=== PATIENT | female | born 1950 | race Caucasian/White ===

== ENCOUNTER 2016-07-06 20:26 | Emergency (ER) | payer OTHER ==
[~2016-07-06] VITALS: Ht 162.6 cm; Wt 62.0 kg
[~2016-07-06 20:26] MED LIST: ALPR2TAB3 PO; AMIO200T2 PO; ASPI81TA3 PO; BACTDS PO; CARV12.579 PO; CEPH-443 PO; CYCL-319 PO; DOCU-144 PO; DONE5TAB46 PO; GUAN1TAB28 PO; HYDR-762 PO; OXCA150T43 PO; PRAV10TA43 PO; SERT50TA PO; TRAM50TA2 PO; ZOLP5TAB6 PO
[2016-07-06 20:30] VITALS: Ht 162.6 cm; Wt 62.0 kg
[2016-07-06 22:03] VITALS: TEMP 98
[2016-07-06] MEDS ORDERED: HYDROmorphONE 1 MG/ML SYG IV STA (22:03)
[2016-07-06 22:33] LABS: BASOPHILS % 0.3 % (0.0-2.0); EOSINOPHILS # 0.3 10^3/ul (0.0-0.5); EOSINOPHILS % 3.3 % (0.0-7.0); HEMATOCRIT 45.2 % (37.0-47.0); HEMOGLOBIN 15.5 g/dl (12.0-16.0); LYMPHOCYTES # 1.6 10^3/ul (0.8-2.9); LYMPHOCYTES % 18.2 % (15.0-51.0); MEAN CORPUSCULAR HEMOGLOBIN 33.1 pg (29.0-33.0); MEAN CORPUSCULAR HGB CONC 34.3 g/dl (32.0-37.0); MEAN CORPUSCULAR VOLUME 96.4 fl (82.0-101.0); MEAN PLATELET VOLUME 9.6 fl (7.4-10.4); MONOCYTE # 1.4 10^3/ul (0.3-0.9); MONOCYTES % 16.3 % (0.0-11.0); NEUTROPHIL # 5.4 10^3/ul (1.6-7.5); NEUTROPHILS % 61.9 % (39.0-77.0); PLATELET COUNT 161 10^3/UL (140-440); RED BLOOD COUNT 4.69 10^6/ul (4.20-5.40); RED CELL DISTRIBUTION WIDTH 14.1 % (11.5-14.5); UNCORRECTED WBC 8.7 10^3/ul (4.8-10.8); WHITE BLOOD COUNT 8.7 10^3/ul (4.8-10.8)
[2016-07-06 22:35] LABS: CONDITION 1; LH ANALYZER COMMENTS 1
[2016-07-06 22:37] LABS: POTASSIUM 4.3 mmol/L (3.5-5.1)
[2016-07-06 22:39] LABS: ALBUMIN/GLOBULIN RATIO 0.95; BILIRUBIN,INDIRECT 0.4 mg/dl (0-1.1); BILIRUBIN,TOTAL 0.4 mg/dl (0.2-1.3); CREATININE 0.57 mg/dl (0.44-1.00); TOTAL PROTEIN 8.2 g/dl (6.1-8.1)
[2016-07-06 22:40] LABS: CALCIUM 9.7 mg/dl (8.4-10.2)
--- NOTE | 2016-07-06 22:51 | RADRPT ---
AMENDMENT: 07/06/2016 10:52:31 PM Ryan Saxena M.D Comparison: 06/05/2015 PROCEDURE: CT abdomen and pelvis without IV contrast. CLINICAL INDICATION: Abdominal pain with diarrhea and bloody stool TECHNIQUE: CT scan of the abdomen and pelvis without contrast was performed on the [employer] volumetric [address] scanner. The patient was scanned without intravenous contrast. Coronal and sagittal refo rmatted images were obtained from the axial source images. The CTDI vol is 8.41 mGy and the DLP is 4 14.45 mGy-cm. COMPARISON: None. FINDINGS: CT abdomen: Scarring in the lingula is seen. The remaining lung bases are clear. The heart size is not enlarge d and is without pericardial thickening or effusion. The pacemaker device is seen. The liver is normal in size and density and is without focal mass or intrahepatic biliary dilatation . The spleen is normal in size and homogeneous in density. The stomach is grossly unremarkable. T he pancreas as visualized is normal. The gallbladder is distended. The common bile duct is not dil ated. The adrenal glands are symmetric and normal. The kidneys are symmetrically unremarkable as we ll. Nonobstructing left renal calculi are once again seen which has not changed significantly. No ob structive uropathy or mass lesion is seen. The aorta is of normal in caliber. Atherosclerotic vascular disease is seen. A stent in the superior mesenteric artery is once again seen. There is no retroperitoneal lymphadenopathy. The shanelle hepat is region is clear. The large bowel is stool-filled. The small and large bowel and mesentery, as v isualized, are otherwise unremarkable. The normal appendix is identified. CT pelvis: The pelvic organs are normal. The pelvic sidewalls and inguinal regions are clear. No pelvic mass, lymphadenopathy, or free fluid is seen. No acute inflammation is seen. The urinary bladder is wit hin normal limits. Degenerative spondylosis of the lumbar spine is seen. A compression fracture of the T12 vertebral reno dy is once again seen and is not changed significantly. No osteolytic or osteoblastic lesion is det ected. IMPRESSION: 1. Distended gallbladder lumen. Recommend ultrasound correlation. 2. Otherwise, no acute pathology in the abdomen and pelvis. 3. Stool filled large bowel. 4. Nonobstructing left renal calculi again noted which have not changed significantly. RPTAT: HPNM Armando Saxena, Physician Date Time Electronically viewed and signed by Armando Saxena, Physician on 07/06/2016 22:52 /
[2016-07-06] MEDS ORDERED: TRAM50TA2 PO (23:31)
[2016-07-06] MEDS ORDERED: FLEETOIL RC (23:31)
[2016-07-06] MEDS ORDERED: DOCU-144 PO (23:31)
--- NOTE | 2016-07-06 23:34 | ERD ---
ER Documentation Chief Complaint Date/Time DATE: 07/06/16 TIME: 23:32 Chief Complaint Pt reports hx of rectal ca. pt reports in remission but having bleeding HPI This is a 65-year-old female comes in with complaints of rectal bleeding for the past 2-3 days. Patient says his been very constipated. She denies any fevers or chills. She denies any nausea or vomiting. She denies any other current complaints. Patient has a history of rectal cancer. Denies any other current complaints. ROS All systems reviewed and are negative except as per history of present illness. Medications Home Meds Active Scripts Tramadol HCl (Tramadol HCl) 50 Mg Tablet, 50 MG PO Q6H Y for PAIN, #30 TAB Prov:KEN SEO 07/06/16 Mineral Oil (Fleet Mineral Oil Enema) 133 Ml Enema, 133 ML RC DAILY for 3 Days, ENEMA Prov:KEN SEO 07/06/16 Docusate Sodium* (Colace*) 100 Mg Capsule, 100 MG PO BID, #60 CAP Prov:KEN SEO 07/06/16 Sulfamethoxazole-Trimethoprim* (Bactrim* DS) 800-160 Mg Tab, 1 TAB PO BID for 7 Days, TAB Prov:JACEK HOWELL MD 10/09/15 Cephalexin* (Keflex*) 500 Mg Capsule, 500 MG PO QID for 7 Days, CAP Prov:JACEK HOWELL MD 10/09/15 Hydrocodone Bit-Acetaminophen* ([place]*) 10-325 Mg Tablet, 1 TAB PO Q6 Y for PAIN , #7 TAB Prov:JACEK HOWELL MD 10/09/15 Tramadol HCl (Tramadol HCl) 50 Mg Tablet, 50 MG PO Q6 Y for PAIN, #10 TAB Prov:EV PIRES MD 06/17/15 Sertraline Hcl* (Zoloft*) 50 Mg Tab, 50 MG PO DAILY, #60 TAB Prov:ERIBERTO HALL 06/10/15 Docusate Sodium* (Colace*) 100 Mg Cap, 100 MG PO Q12H Y for CONSTIPATION for 30 Days, CAP Prov:BYRON CEBALLOS MD 05/23/15 Cyclobenzaprine Hcl* (Cyclobenzaprine Hcl*) 10 Mg Tab, 5 MG PO BID for 30 Days, TAB Prov:BYRON CEBALLOS MD 05/23/15 Reported Medications Donepezil* (Aricept*) 5 Mg Tablet, 5 MG PO DAILY, #30 06/05/15 Oxcarbazepine* (Oxcarbazepine*) 150 Mg Tablet, 150 MG PO DAILY, #30 06/05/15 Guanfacine Hcl* (Guanfacine Hcl*) 1 Mg Tablet, 1 MG PO HS, TAB 05/17/15 Alprazolam* (Alprazolam* ER) 2 Mg Tab.sr.24h, 2 MG PO DAILY Y for ANXIETY, #60 05/17/15 Carvedilol* (Carvedilol*) 12.5 Mg Tablet, 12.5 MG PO BID, #60 05/17/15 Zolpidem Tartrate* (Zolpidem Tartrate*) 5 Mg Tablet, 5 MG PO QHS Y for SLEEP, # 30 05/17/15 Amiodarone Hcl* (Amiodarone Hcl*) 200 Mg Tablet, 200 MG PO DAILY, TAB 01/23/15 Aspirin* (Aspirin* Chew) 81 Mg Tab.chew, 81 MG PO DAILY, TAB.CHEW 01/23/15 Pravastatin Sodium* (Pravastatin Sodium*) 10 Mg Tablet, 10 MG PO DAILY, TAB 11/09/13 Allergies Allergies: Coded Allergies: ondansetron (Verified Allergy, Severe, HYPOTENSION,VOMIT, 06/17/15) PMhx/Soc History of Surgery: Yes (defibrillator placement, Cardiac stent placement ) Anesthesia Reaction: No Hx Neurological Disorder: Yes (migraines ) Hx Respiratory Disorders: Yes (SOB ) Hx Cardiac Disorders: Yes (HTN, arrythmias, CHF ) Hx Psychiatric Problems: Yes (panic attacks ) Hx Miscellaneous Medical Probl: Yes (rheumatic fever as a child ) Hx Alcohol Use: No 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 Neck: Full range of motion..~ No meningismus. Resp: Clear to auscultation bilaterally Cardio: Regular rate and rhythm, no murmurs Abd: Soft, non tender, non distended. Normal bowel sounds Skin: No petechiae or rashes Back: No midline or flank tenderness Ext: No cyanosis, or edema Neur: Awake and alert Psych: Normal Mood and Affect Result Diagram: 07/06/16219907/06/162199 Results 24 hrs Laboratory Tests Test 07/06/16 22:00 Alanine Aminotransferase (ALT/SGPT) 110IU/L Albumin 4.0g/dl Albumin/Globulin Ratio 0.95 Alkaline Phosphatase 121IU/L Anion Gap 17 Aspartate Amino Transf (AST/SGOT) 146IU/L Basophils # Pending Basophils % Pending Blood Urea Nitrogen 12mg/dl Calcium Level 9.7mg/dl Carbon Dioxide Level 26mmol/L Chloride Level 102mmol/L Creatinine 0.57mg/dl Direct Bilirubin 0.00mg/dl Eosinophils # Pending Eosinophils % Pending Globulin 4.20g/dl Glucose Level 102mg/dl Hematocrit 45.2% Hemoglobin 15.5g/dl Indirect Bilirubin 0.4mg/dl Lymphocytes # Pending Lymphocytes % Pending Mean Corpuscular Hemoglobin 33.1pg Mean Corpuscular Hemoglobin Concent 34.3g/dl Mean Corpuscular Volume 96.4fl Mean Platelet Volume 9.6fl Monocytes # Pending Monocytes % Pending Neutrophils # Pending Neutrophils % Pending Nucleated Red Blood Cells # Pending Nucleated Red Blood Cells % Pending Platelet Count 21558^3/UL Potassium Level 4.3mmol/L Red Blood Count 4.6910^6/ul Red Cell Distribution Width 14.1% Sodium Level 141mmol/L Total Bilirubin 0.4mg/dl Total Protein 8.2g/dl White Blood Count 8.710^3/ul Current Medications Medications (Trade) Dose Ordered Sig/Paola Route PRN Reason Start Time Stop Time Status Last Admin Dose Admin Hydromorphone HCl (Dilaudid) 1 mg ONCE STAT IV 07/06/16 22:03 07/06/16 22:05 DC 07/06/16 22:10 Procedures/MDM Medical decision makin-year-old female with severe constipation. CT is negative for any acute intra-abdominal surgical process. Blood count looks good. Patient with initial hemoglobin simply enemas. She has a follow-up with her tile edger in 3 days. Patient to keep that appointment. Return in 8 hours for serial abdominal exams. Departure Diagnosis: Primary Impression: Constipation Constipation type: unspecified constipation type Qualified Code: K59.00 - Constipation, unspecified constipation type Condition: Stable Patient Instructions: Constipation (Adult) KEN SEO Jul 06, 2016 23:34
[2016-07-06 23:44] LABS: PLATELET ESTIMATE PLT APPEAR ADEQUATE
[2016-07-07 00:02] VITALS: BP 122/55; PULSE 88; RESP 18
== END 2016-07-07 00:03 | disposition home or self-care (01) ==
LOC: E/R 20:26
DX: K59.00 Constipation, unspecified (principal); I10 Essential (primary) hypertension; I50.9 Heart failure, unspecified; Z85.048 Personal history of other malignant neoplasm of rectum, rectosigmoid junction, and anus; Z79.82 Long term (current) use of aspirin; Z87.891 Personal history of nicotine dependence; Z95.810 Presence of automatic (implantable) cardiac defibrillator; Z98.61 Coronary angioplasty status
CPT/HCPCS: 36415; 74176; 80053; 85025; 86850; 86900; 86901; 96374; J1170; Z7502

== ENCOUNTER 2016-07-20 19:46 | Inpatient (IN) | payer OTHER ==
[~2016-07-20] VITALS: Ht 162.6 cm; Wt 61.4 kg
[~2016-07-20 19:46] MED LIST changes: +FLEETOIL RC
[2016-07-20] MEDS ORDERED: SOD CHLORIDE 0.9% 500 ML IV STA (22:14)
[2016-07-20] MEDS ORDERED: METO-448 PO (22:39)
[2016-07-20] MEDS ORDERED: CIPR500T4 PO (22:39)
[2016-07-20] MEDS ORDERED: ONDANSETRON 4 MG INJ IV STA (23:07)
[2016-07-20] MEDS ORDERED: HYDROmorphONE 1 MG/ML SYG IV STA (23:07)
--- NOTE | 2016-07-20 23:39 | RADRPT ---
PROCEDURE: CT ABDOMEN/PELVIS WITHOUT CONTRAST CLINICAL INDICATION: 65-year-old female with abdominal pain and rectal bleeding. The patient has a history of anal cancer and kidney stones. TECHNIQUE: The study was performed utilizing a GE [employer] VCT 64-slice CT scanner. Direct axia l sections were obtained through the abdomen and pelvis without the use of intravenous contrast mate rial. Sagittal and coronal reformations were obtained. Automated exposure control and iterative saniya nstruction techniques were utilized for this examination. The images were reviewed on a PACS workst [employer]. CTD/vol = 7.4 mGy; Total Exam DLP = 378.1 mGy-cm. COMPARISON: CT abdomen/pelvis July 06, 2016; CT abdomen/pelvis June 05, 2015.. FINDINGS: The inferior aspect of AICD electrodes are noted. There is mild scarring within the inferior aspect of the lingula. There is no evidence for significant pleural effusion. The liver has a normal siz e and contour without focal areas of abnormal density. No intrahepatic nor extrahepatic biliary duct al dilatation is seen. The gallbladder is distended but without evidence for calcified stones, signi ficant wall thickening or pericholecystic fluid. The pancreas is without areas of abnormal attenuat ion. The spleen is identified and has a normal size without abnormal density. The adrenal glands ar e unremarkable. The right kidney is without abnormal density, calculi or obstruction. There are non obstructing calculi within the left lower pole renal joceline with the largest measuring approximately 5 x 4 mm. There was a previous calculus within this region which has migrated into the left uretero pelvic junction region measuring approximately 14 x 11 x 8 mm with minimal prominence of the renal pelvis but without michelle obstructive uropathy. This may be causing a partial obstruction. The urina ry bladder contains urine. There is persistent moderate retained stool throughout the colon without gross bowel obstruction. The appendix is visualized and is without abnormal thickening or surroundin g inflammatory reaction. The uterus is unremarkable. Phleboliths are seen within the pelvis. There is no significant pelvic free fluid. The aortoiliac vessels are without aneurysmal dilatation. Deg enerative changes are present throughout the spine. There is a severe compression fracture of the in ferior T12 vertebral body with approximately 80% loss of height with a cleavage plane and gas identi fied within the inferior aspect of the vertebral body extending into the interspace. This is withou t significant change compared to the patient's most recent CT scan from July 06, 2016. There is a Schmorl's node involving the inferior endplate of the L3 vertebral body. IMPRESSION: 1. Prominent 14 x 11 x 8 mm calculus within the left ureteropelvic junction region which has migrat ed from the left lower pole renal joceline compared to the patient's prior CT scan from July 06 17 with mild prominence of the pelvis suggesting a possible partial obstruction. 2. Smaller nonobstructing left lower pole renal joceline calculi. 3. Moderate retained stool throughout the colon without gross bowel obstruction as previously ident ified. 4. Distended gallbladder. 5. No CT evidence for appendicitis. 6. Degenerative changes within the spine with old severe compression fracture inferior T12 vertebra l body with persistent inferior cleavage plane and gas. .Anoop Li MD, Date Time Electronically viewed and signed by .Anoop Li MD, on 07/20/2016 23:38 .M/
[2016-07-20 23:44] LABS: ADD SCAN DIFF NO
[2016-07-20 23:49] LABS: BASOPHILS % 0.4 % (0.0-2.0); EOSINOPHILS # 0.2 10^3/ul (0.0-0.5); EOSINOPHILS % 2.9 % (0.0-7.0); HEMATOCRIT 45.3 % (37.0-47.0); HEMOGLOBIN 14.9 g/dl (12.0-16.0); LYMPHOCYTES % 29.1 % (15.0-51.0); MEAN CORPUSCULAR HEMOGLOBIN 31.6 pg (29.0-33.0); MEAN CORPUSCULAR HGB CONC 32.9 g/dl (32.0-37.0); NEUTROPHIL # 3.6 10^3/ul (1.6-7.5); NEUTROPHILS % 53.3 % (39.0-77.0); PLATELET COUNT 207 10^3/UL (140-415); RED BLOOD COUNT 4.72 10^6/ul (4.20-5.40); RED CELL DISTRIBUTION WIDTH 12.6 % (11.5-14.5); WHITE BLOOD COUNT 6.8 10^3/ul (4.8-10.8)
[2016-07-20 23:59] LABS: INR 0.98
[2016-07-21] LABS: PARTIAL THROMBOPLASTIN TIME 28.3 Sec (25.0-35.0)
[2016-07-21 00:04] LABS: ADD UMIC YES; URINE BILIRUBIN (Dip) NEGATIVE (NEGATIVE); URINE BLOOD (Dip) 3+ (NEGATIVE); URINE COLOR YELLOW (YELLOW); URINE GLUCOSE (Dip) NEGATIVE (NEGATIVE); URINE KETONES (Dip) NEGATIVE (NEGATIVE); URINE LEUKOCYTE ESTERASE (Dip) NEGATIVE (NEGATIVE); URINE NITRITE (Dip) NEGATIVE (NEGATIVE); URINE TOTAL PROTEIN (Dip) NEGATIVE (NEGATIVE); URINE UROBILINOGEN (Dip) 0.2 E.U./dL (0.1-1.0)
[2016-07-21 00:09] LABS: ALBUMIN 4.3 g/dl (3.3-4.9)
[2016-07-21 00:12] LABS: BILIRUBIN,INDIRECT 0.5 mg/dl (0-1.1); BILIRUBIN,TOTAL 0.5 mg/dl (0.2-1.3); CREATININE 0.6 mg/dl (0.44-1.00); TOTAL PROTEIN 8.6 g/dl (6.1-8.1)
[2016-07-21 00:13] LABS: CALCIUM 10.3 mg/dl (8.4-10.2)
[2016-07-21 00:36] LABS: BACTERIA,URINE RARE; MUCUS,URINE FEW; SQUAMOUS EPITHELIAL CELL,UR FEW
--- NOTE | 2016-07-21 00:57 | ERA ---
ER Documentation Chief Complaint Date/Time DATE: 07/21/16 TIME: 00:56 Chief Complaint RECTAL BLEED X 3 DAYS. HX OF ANAL CANCER HPI This is a 65-year-old female with rectal bleeding for 3 days. Patient has history of rectal cancer. No fevers no chills. No new trauma. Patient says he feels weak and dizzy as well. No other current complaints. T ROS All systems reviewed and are negative except as per history of present illness. Medications Home Meds Reported Medications Ciprofloxacin Hcl* (Ciprofloxacin Hcl*) 500 Mg Tablet, 500 MG PO BID, #14 TAB 07/20/16 Metoprolol Tartrate* (Lopressor*) 25 Mg Tab, 12.5 MG PO BID, #60 TAB 07/20/16 Discontinued Reported Medications Donepezil* (Aricept*) 5 Mg Tablet, 5 MG PO DAILY, #30 06/05/15 Oxcarbazepine* (Oxcarbazepine*) 150 Mg Tablet, 150 MG PO DAILY, #30 06/05/15 Guanfacine Hcl* (Guanfacine Hcl*) 1 Mg Tablet, 1 MG PO HS, TAB 05/17/15 Alprazolam* (Alprazolam* ER) 2 Mg Tab.sr.24h, 2 MG PO DAILY Y for ANXIETY, #60 05/17/15 Carvedilol* (Carvedilol*) 12.5 Mg Tablet, 12.5 MG PO BID, #60 05/17/15 Zolpidem Tartrate* (Zolpidem Tartrate*) 5 Mg Tablet, 5 MG PO QHS Y for SLEEP, # 30 05/17/15 Amiodarone Hcl* (Amiodarone Hcl*) 200 Mg Tablet, 200 MG PO DAILY, TAB 01/23/15 Aspirin* (Aspirin* Chew) 81 Mg Tab.chew, 81 MG PO DAILY, TAB.CHEW 01/23/15 Pravastatin Sodium* (Pravastatin Sodium*) 10 Mg Tablet, 10 MG PO DAILY, TAB 11/09/13 Discontinued Scripts Tramadol HCl (Tramadol HCl) 50 Mg Tablet, 50 MG PO Q6H Y for PAIN, #30 TAB Prov:KEN SEO 07/06/16 Mineral Oil (Fleet Mineral Oil Enema) 133 Ml Enema, 133 ML RC DAILY for 3 Days, ENEMA Prov:KEN SEO 07/06/16 Docusate Sodium* (Colace*) 100 Mg Capsule, 100 MG PO BID, #60 CAP Prov:KEN SEO 07/06/16 Sulfamethoxazole-Trimethoprim* (Bactrim* DS) 800-160 Mg Tab, 1 TAB PO BID for 7 Days, TAB Prov:JACEK HOWELL MD 10/09/15 Cephalexin* (Keflex*) 500 Mg Capsule, 500 MG PO QID for 7 Days, CAP Prov:JACEK HOWELL MD 10/09/15 Hydrocodone Bit-Acetaminophen* ([place]*) 10-325 Mg Tablet, 1 TAB PO Q6 Y for PAIN , #7 TAB Prov:JACEK HOWELL MD 10/09/15 Tramadol HCl (Tramadol HCl) 50 Mg Tablet, 50 MG PO Q6 Y for PAIN, #10 TAB Prov:EV PIRES MD 06/17/15 Sertraline Hcl* (Zoloft*) 50 Mg Tab, 50 MG PO DAILY, #60 TAB Prov:ERIBERTO HALL 06/10/15 Docusate Sodium* (Colace*) 100 Mg Cap, 100 MG PO Q12H Y for CONSTIPATION for 30 Days, CAP Prov:BYRON CEBALLOS MD 05/23/15 Cyclobenzaprine Hcl* (Cyclobenzaprine Hcl*) 10 Mg Tab, 5 MG PO BID for 30 Days, TAB Prov:BYRON CEBALLOS MD 05/23/15 Allergies Allergies: Coded Allergies: ondansetron (Verified Allergy, Severe, HYPOTENSION,VOMIT, 07/20/16) PMhx/Soc History of Surgery: Yes (defibrillator placement, Cardiac stent placement ) Anesthesia Reaction: No Hx Neurological Disorder: Yes (migraines ) Hx Respiratory Disorders: Yes (SOB ) Hx Cardiac Disorders: Yes (HTN, arrythmias, CHF ) Hx Psychiatric Problems: Yes (panic attacks ) Hx Miscellaneous Medical Probl: Yes (rheumatic fever as a child, ANAL CA FINISHED RADIATION OCTOBER 2015) Hx Alcohol Use: No 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 Neck: Full range of motion..~ No meningismus. Resp: Clear to auscultation bilaterally Cardio: Regular rate and rhythm, no murmurs Abd: Soft, non tender, non distended. Normal bowel sounds Skin: No petechiae or rashes Back: No midline or flank tenderness Ext: No cyanosis, or edema Neur: Awake and alert Psych: Normal Mood and Affect Result Diagram: 07/20/16220407/20/162204 Results 24 hrs Laboratory Tests Test 07/20/16 22:05 07/20/16 22:55 Activated Partial Thromboplast Time 28.3Sec Alanine Aminotransferase (ALT/SGPT) 128IU/L Albumin 4.3g/dl Albumin/Globulin Ratio 1.00 Alkaline Phosphatase 98IU/L Anion Gap 20 Aspartate Amino Transf (AST/SGOT) 146IU/L Basophils # 0.010^3/ul Basophils % 0.4% Blood Urea Nitrogen 14mg/dl Calcium Level 10.3mg/dl Carbon Dioxide Level 27mmol/L Chloride Level 102mmol/L Creatinine 0.60mg/dl Direct Bilirubin 0.00mg/dl Eosinophils # 0.210^3/ul Eosinophils % 2.9% Globulin 4.30g/dl Glucose Level 83mg/dl Hematocrit 45.3% Hemoglobin 14.9g/dl INR International Normalized Ratio 0.98 Indirect Bilirubin 0.5mg/dl Lipase 192U/L Lymphocytes # 2.010^3/ul Lymphocytes % 29.1% Mean Corpuscular Hemoglobin 31.6pg Mean Corpuscular Hemoglobin Concent 32.9g/dl Mean Corpuscular Volume 96.0fl Mean Platelet Volume 11.0fl Monocytes # 1.010^3/ul Monocytes % 14.0% Neutrophils # 3.610^3/ul Neutrophils % 53.3% Nucleated Red Blood Cells # 0.010^3/ul Nucleated Red Blood Cells % 0.0/100WBC Platelet Count 43512^3/UL Potassium Level 4.0mmol/L Prothrombin Time 13.0Sec Prothrombin Time Ratio 1.0 Red Blood Count 4.7210^6/ul Red Cell Distribution Width 12.6% Sodium Level 145mmol/L Total Bilirubin 0.5mg/dl Total Protein 8.6g/dl White Blood Count 6.810^3/ul Urine Bacteria RARE Urine Bilirubin NEGATIVE Urine Clarity SL HAZY Urine Color YELLOW Urine Glucose NEGATIVE% Urine Hemoglobin 3+ Urine Ketones NEGATIVE Urine Leukocyte Esterase NEGATIVE Urine Microscopic RBC 5-10/HPF Urine Microscopic WBC 0-2/HPF Urine Mucus FEW Urine Nitrite NEGATIVE Urine Specific [place] >=1.030 Urine Squamous Epithelial Cells FEW Urine Total Protein NEGATIVE Urine Urobilinogen 0.2 E.U./dL Urine pH 6.0 Current Medications Medications (Trade) Dose Ordered Sig/Paola Route PRN Reason Start Time Stop Time Status Last Admin Dose Admin Sodium Chloride (NS) 500 ml @ 500 mls/hr Q1H STAT IV 07/20/16 22:14 07/20/16 23:13 DC 07/20/16 23:04 Hydromorphone HCl (Dilaudid) 1 mg ONCE STAT IV 07/20/16 23:07 07/20/16 23:18 DC 07/20/16 23:21 Ondansetron HCl (Zofran Inj) 4 mg ONCE STAT IV 07/20/16 23:07 07/20/16 23:19 DC Procedures/MDM Medical decision makin year female with history of rectal cancer with anal hemorrhage. At this point patient be admitted for the evaluation and management. Patient will be admitted to hospitalist. Departure Diagnosis: Primary Impression: Rectal hemorrhage Additional Impressions: Active bleeding Weakness Condition: Serious KEN SEO Jul 21, 2016 00:57
[2016-07-21 00:59] VITALS: TEMP 98.2
[2016-07-21 01:20] VITALS: BP 136/68; RESP 18
[2016-07-21 01:41] VITALS: Ht 162.6 cm; Wt 61.4 kg
[2016-07-21] MEDS ORDERED: ONDANSETRON 4 MG INJ IV PRN (02:00)
[2016-07-21] MEDS: DEXTROSE 5%-0.45% NACL 1,000 ML IV SCH ×4 (03:34→21:46)
[2016-07-21 06:16] LABS: ADD SCAN DIFF NO
[2016-07-21 06:24] LABS: BASOPHILS % 0.5 % (0.0-2.0); EOSINOPHILS # 0.2 10^3/ul (0.0-0.5); EOSINOPHILS % 3.3 % (0.0-7.0); HEMATOCRIT 39.1 % (37.0-47.0); HEMOGLOBIN 12.9 g/dl (12.0-16.0); LYMPHOCYTES # 1.8 10^3/ul (0.8-2.9); LYMPHOCYTES % 27.8 % (15.0-51.0); MEAN CORPUSCULAR HEMOGLOBIN 31.9 pg (29.0-33.0); MEAN CORPUSCULAR VOLUME 96.8 fl (82.0-101.0); MEAN PLATELET VOLUME 10.2 fl (7.4-10.4); MONOCYTE # 0.9 10^3/ul (0.3-0.9); MONOCYTES % 13.4 % (0.0-11.0); NEUTROPHIL # 3.5 10^3/ul (1.6-7.5); NEUTROPHILS % 54.7 % (39.0-77.0); PLATELET COUNT 167 10^3/UL (140-415); RED BLOOD COUNT 4.04 10^6/ul (4.20-5.40); RED CELL DISTRIBUTION WIDTH 12.5 % (11.5-14.5); WHITE BLOOD COUNT 6.3 10^3/ul (4.8-10.8)
[2016-07-21 06:30] VITALS: BP 123/70; PULSE 82; RESP 18
[2016-07-21] MEDS: CIPROFLOXACIN 500 MG TAB PO SCH ×2 (06:30→18:27)
[2016-07-21 06:32] LABS: IRON 96 ug/dl (35-150)
[2016-07-21 06:34] LABS: ALBUMIN 3.3 g/dl (3.3-4.9); POTASSIUM 3.7 mmol/L (3.5-5.1)
[2016-07-21 06:36] LABS: BILIRUBIN,INDIRECT 0.4 mg/dl (0-1.1); BILIRUBIN,TOTAL 0.4 mg/dl (0.2-1.3); CREATININE 0.56 mg/dl (0.44-1.00)
[2016-07-21 06:37] LABS: ALBUMIN/GLOBULIN RATIO 0.78; TOTAL PROTEIN 7.5 g/dl (6.1-8.1)
[2016-07-21] MEDS: morphine 2 MG INJ IV PRN ×2 (06:38→18:41)
[2016-07-21 06:41] LABS: TOTAL IRON BINDING CAPACITY 366 ug/dl (241-421)
[2016-07-21] MEDS ORDERED: METOCLOPRAMIDE 10 MG INJ IV PRN (07:00)
--- NOTE | 2016-07-21 08:21 | HP ---
DATE OF ADMISSION: 07/21/2016 TIME SEEN: 4 a.m. CHIEF COMPLAINT: Rectal bleed. HISTORY OF PRESENT ILLNESS: The patient is a 65-year-old female with a history of anal cancer stat us post radiation (last was in October of 2015), anemia, status post AICD, anxiety/depression, dyslipid emia, migraine headaches, kidney stones, also a history of cardiomyopathy, IV drug abuse and hepatit is C who presented to the emergency department with rectal bleeding. The patient was actually admit nydia here 6 weeks ago after she presented with rectal bleeding and rectal pain. At that time abrasio ns and excoriations were noted in her rectal area. She was evaluated by GI, and was offered colonos copy but then she refused, saying that she has had multiple in the past. At that time, her bleeding stabilized and her H and H was stable and she was discharged in stable condition. At that time, stef resendiz was also treated for C. diff. After she was discharged, the patient stated that recently her rect al bleeding was treated with formaldehyde by her doctor outside, but she stated rectal bleeding cont inued. She is also currently taking Cipro for urinary tract infection. When she presented to the ER, blood pressure was 171/79, heart rate 118, respiratory rate 20, temper ature 95.8, oxygen saturation 100% on room air. Repeat temperature was 97.6 and repeat temperatures since initial presentation have been ranging between 97.6 and 98.5. Laboratory values show a hemoglobin of 15. Sodium 145. AST 146, ALT 128, and calcium slightly high at 10.3 with albumin of 4.3. Otherwise, CBC and CMP are within normal limits. CT abdomen and pelvis without contrast shows prominent 14 x 11 x 8 mm calculus within the left urete ropelvic junction, which has migrated from the left lower pole renal joceline compared to patient's michael or CT 6 weeks ago with mild prominence of the pelvis suggesting possible partial obstruction. There was also moderate retained stool throughout the colon without gross bowel obstruction. Also noted was a small nonobstructing left lower pole renal joceline calculus. The patient was given pain medicat ion, IV fluid, and Zofran and admitted for further evaluation. REVIEW OF SYSTEMS: Apparently was performed and is negative except as mentioned in HPI. PAST MEDICAL HISTORY: As per HPI. PAST SURGICAL HISTORY: Placement of an AICD. SOCIAL HISTORY: She has a remote history of IV drug use. She is also a former smoker. Denied a hi story of alcohol. ALLERGIES: ZOFRAN. HOME MEDICATION: Lopressor 12.5 mg twice a day. Recently she was started on Cipro. PHYSICAL EXAMINATION: VITAL SIGNS: Stable. GENERAL: No acute distress, answering questions appropriately, in full sentences. HEENT: No obvious head deformity. Pupils react to light. Extraocular muscles intact. CARDIOVASCULAR: Slightly tachycardic with regular rhythm. There is a Port-A-Cath in the right uppe r chest and AICD in the left upper chest. LUNGS: Clear. ABDOMEN: Soft. There is slight discomfort to deep palpation diffusely without guarding, rebound, t enderness or rigidity. EXTREMITIES: No edema. NEUROLOGIC: No focal deficits. LABORATORY DATA: Pertinent positives as mentioned in the HPI. IMAGING: CT abdomen and pelvis without contrast as mentioned in the HPI. IMPRESSION: 1. Recurrent rectal bleeding. 2. History of anal cancer status post radiation. 3. History of paroxysmal atrial fibrillation. 4. History of automatic implantable cardioverter-defibrillator. 5. Left ureteropelvic junction calculus. 6. Recently diagnosed urinary tract infection as an outpatient, on Cipro 7. History of depression/anxiety/panic attack. 8. History of cardiomyopathy with ejection fraction of 35% in 2015. 9. Remote history of intravenous drug use. 10. History of hepatitis C. PLAN: Will monitor her H and H closely and transfuse as needed. We will reconsulted GI. Note that the patient refused colonoscopy 6 weeks ago when she was admitted here for rectal bleeding, stating that she has had multiple colonoscopies in the past. We will also consult Urology, given the left UPJ calculus. She will be continued with Cipro. Urinalysis here in the ER was negative for UTI. I will continue Lopressor. Further workup and management per clinical course. Dictated By: KEN FAN/BENJAMIN Conf#: [id number] DID#: [id number]
[2016-07-21] MEDS: FERROUS SULFATE (EC) 325 MG TAB PO SCH ×2 (09:00→20:37)
[2016-07-21 09:50] VITALS: BP 126/60; PULSE 78; RESP 22
[2016-07-21] MEDS: METOPROLOL 25 MG TAB PO SCH ×2 (10:00→20:37)
[2016-07-21 10:01] VITALS: BP 126/60; RESP 22
[2016-07-21] MEDS: METOCLOPRAMIDE 10 MG INJ IV PRN ×2 (10:54→20:37)
[2016-07-21] MEDS: LORAZEPAM 2 MG INJ IV PRN (11:05)
--- NOTE | 2016-07-21 16:37 | CONS ---
Date/Time of Note Date/Time of Note DATE: 07/21/16 TIME: 16:32 Assessment/Plan Assessment/Plan Additional Assessment/Plan Rectal bleeding History of rectal cancer * Colonoscopy tomorrow * Bowel prep * Recommend oncology consult Anemia * Monitor hemoglobin every 8 hours, transfuse 2 units for hemoglobin less than 7.5 * EGD tomorrow * PPI twice daily History of hepatitis C * Hep C genotype and RNA * Recommend outpatient follow-up with GI/hepatology History of paroxysmal atrial fibrillation History of automatic implantable cardioverter-defibrillator History of cardiomyopathy with ejection fraction of 35% in 2015 * Recommend cardiology consult Left ureteropelvic junction calculus. Recently diagnosed urinary tract infection as an outpatient, on Cipro History of depression/anxiety/panic attack. Remote history of intravenous drug use. Further recommendations pending clinical course Consultation Date/Type/Reason Admit Date/Time Jul 21, 2016 at 00:36 Hx of Present Illness 65-year-old woman presented to ED today with repeated complaints of rectal bleeding. Pt reports experience rectal bleeding since about 2012. She reports bleeding only with bowel movements. Patient reports history of rectal cancer diagnosed early 2015. Patient reports radiation treatment for rectal tumor only and that her last treatment was in October 2015. Patient states her last colonoscopy was July 2012 and that she is not currently being followed by oncology. States that rectal tumor was successfully treated with radiation only. She denies any rectal surgery. Patient states prior to rectal cancer diagnosis, she had been experiencing rectal bleeding intermittently with bowel movements. She states in the last week the frequency of bowel movements have increased, but she denies blood in stool. She reports remote history of black stools but unable to provide onset. Denies iron supplementation and Pepto- Bismol use. Patient has been using Imodium unsuccessfully to treat diarrhea. Patient denies fever, chills, nausea, vomiting, hematochezia, sick contacts, and travel outside the [place]. At bedside, patient consents to EGD and colonoscopy. Risks/benefits/alternatives to procedure explained to patient and she is agreeable to proceed. Past Medical History Medical History: hepatitis Social History Smoking Status: Former smoker Exam/Review of Systems Vital Signs Vitals Vital Signs Date Time Temp Pulse Resp B/P Pulse Ox O2 Delivery O2 Flow Rate FiO2 07/21/16 10:01 98.8 22 126/60 94 07/21/16 09:50 78 Room Air Intake and Output 07/20/16 07/20/16 07/21/16 15:00 23:00 07:00 Output Total 100 ml Balance -100 ml Exam Constitutional: alert, oriented, other (thin) Psych: anxiety Head: normocephalic Eyes: EOMI, nl conjunctiva, nl lids ENMT: nl external ears & nose, nl lips & teeth, nl nasal mucosa & septum Respiratory: normal air movement Cardiovascular: regular rate and rhythm Gastrointestinal: soft, tender (suprapubic tenderness) Musculoskeletal: nl extremities to inspection Neurological: BOOKKEEPERS SUPERVISOR II-XII intact Results Result Diagram: 07/21/1652107/21/16521 Results 24 hrs Laboratory Tests Test 07/20/16 22:05 07/20/16 22:55 07/21/16 02:45 07/21/16 05:22 Activated Partial Thromboplast Time 28.3 Alanine Aminotransferase (ALT/SGPT) 128 H 112 H Albumin 4.3 3.3 # Albumin/Globulin Ratio 1.00 0.78 Alkaline Phosphatase 98 76 Anion Gap 20 H 15 Aspartate Amino Transf (AST/SGOT) 146 H 110 H Basophils # 0.0 0.0 Basophils % 0.4 0.5 Blood Urea Nitrogen 14 14 Calcium Level 10.3 H 9.0 Carbon Dioxide Level 27 27 Chloride Level 102 103 Creatinine 0.60 0.56 Direct Bilirubin 0.00 0.00 Eosinophils # 0.2 0.2 Eosinophils % 2.9 3.3 Globulin 4.30 H 4.20 H Glucose Level 83 92 Hematocrit 45.3 39.1 Hemoglobin 14.9 12.9 INR International Normalized Ratio 0.98 Indirect Bilirubin 0.5 0.4 Lipase 192 Lymphocytes # 2.0 1.8 Lymphocytes % 29.1 27.8 Mean Corpuscular Hemoglobin 31.6 31.9 Mean Corpuscular Hemoglobin Concent 32.9 33.0 Mean Corpuscular Volume 96.0 96.8 Mean Platelet Volume 11.0 H 10.2 Monocytes # 1.0 H 0.9 Monocytes % 14.0 H 13.4 H Neutrophils # 3.6 3.5 Neutrophils % 53.3 54.7 Nucleated Red Blood Cells # 0.0 0.0 Nucleated Red Blood Cells % 0.0 0.0 Platelet Count 207 167 Potassium Level 4.0 3.7 Prothrombin Time 13.0 Prothrombin Time Ratio 1.0 Red Blood Count 4.72 4.04 L Red Cell Distribution Width 12.6 12.5 Sodium Level 145 H 141 Total Bilirubin 0.5 0.4 Total Protein 8.6 H 7.5 # White Blood Count 6.8 # 6.3 Urine Bacteria RARE Urine Bilirubin NEGATIVE Urine Clarity SL HAZY Urine Color YELLOW Urine Glucose NEGATIVE Urine Hemoglobin 3+ H Urine Ketones NEGATIVE Urine Leukocyte Esterase NEGATIVE Urine Microscopic RBC 5-10 Urine Microscopic WBC 0-2 Urine Mucus FEW Urine Nitrite NEGATIVE Urine Specific [place] >=1.030 H Urine Squamous Epithelial Cells FEW Urine Total Protein NEGATIVE Urine Urobilinogen 0.2 E.U./dL Urine pH 6.0 Stool Occult Blood NEGATIVE Ferritin 146.0 Test 07/21/16 05:52 Iron Level 96 Percent Iron Saturation 26 Total Iron Binding Capacity 366 Medications Medications Current Medications Dextrose/Sodium Chloride (D5-1/2ns) 1,000 ml @ 100 mls/hr Q10H IV Last administered on 07/21/16 14:15; Admin Dose 100 MLS/HR; Start 07/21/16 at 02:00 Morphine Sulfate (morphine) 2 mg Q4H PRN IV PAIN Last administered on 06:38; Admin Dose 2 MG; Start 07/21/16 at 02:00 Lorazepam (Ativan) 1 mg Q8H PRN IV ANXIETY Last administered on 07/21/16 11:05 ; Admin Dose 1 MG; Start 07/21/16 at 02:00 Ciprofloxacin (Cipro) 500 mg BID@06,18 PO ; Start 07/21/16 at 06:30 Metoprolol Tartrate (Lopressor) 12.5 mg BID PO ; Start 07/21/16 at 09:00 Ferrous Sulfate (Ferrous Sulfate (Ec)) 325 mg BID PO ; Start 07/21/16 at 09:00 Metoclopramide HCl (Reglan) 5 mg Q6H PRN IV NAUSEA AND/OR VOMITING Last administered on 07/21/16 10:54; Admin Dose 5 MG; Start 07/21/16 at 11:00 ALYSSIA FLANNERY MD Jul 21, 2016 16:37
[2016-07-21] MEDS ORDERED: BISACODYL (EC) 5 MG TAB PO ONE ×2 (18:00→22:00)
[2016-07-21] MEDS: PANTOPRAZOLE 40 MG INJ IV SCH (18:27)
[2016-07-21 20:00] VITALS: BP 160/82; PULSE 75; RESP 17
[2016-07-21] MEDS ORDERED: POLYETHYLENE GLYCOL 3350 119 GM POWDER PO ONE ×2 (20:00→22:00)
[2016-07-21] MEDS: MAGNESIUM CITRATE 300 ML BTL PO ONE ×2 (20:12→21:45)
--- NOTE | 2016-07-21 21:31 | RADRPT ---
PROCEDURE: XR Abdomen. CLINICAL INDICATION: Abdomen pain. TECHNIQUE: AP supine abdomen x-ray. COMPARISON: 11/27/2014. FINDINGS: The bowel gas pattern is normal. There is no evidence of obstruction. There is a calculus in the left ureteropelvic junction region as seen on prior CT scan measuring 1.1 cm adjacent to the left as a process of L2. There is no other urinary tract calculus. There are degenerative changes of the spine. There is a permanent pacemaker/internal cardiac defibrillator and cardiomegaly. IMPRESSION: 1. No evidence of bowel obstruction. 2. Unchanged position of left ureteral pelvic junction calculus measuring 1.1 cm. 3. Degenerative changes of the spine. 4. Permanent pacemaker/internal cardiac defibrillator. 5. Cardiomegaly. RPTAT: QQ .Sahkir Gardner MD, MD Date Time Electronically viewed and signed by .Shakir Gardner MD, MD on 07/21/2016 21:31 .R/
--- NOTE | 2016-07-21 21:58 | CONS ---
DATE OF ADMISSION: 07/21/2016 DATE OF CONSULTATION: 07/21/2016 REQUESTING PHYSICIAN: Deny Null MD Dear Dr. Null: Thank you for asking me to see this patient in urological consultation. HISTORY OF PRESENT ILLNESS: She is a 65-year-old female who is known to have a history of renal sto deepali and also history of anal cancer. She has undergone radiation therapy and also she has been pres enting to the hospital with rectal bleed and, in fact, she came in this time as well for rectal blee ding and about 6 weeks ago she also did have a rectal bleed. A CT scan of the abdomen and pelvis wa s done and that showed a 14 x 11 x 8 mm stone at the left ureteropelvic junction and it appears that the stone was in the lower pole joceline before and now has migrated up into the renal pelvis. The pa tient also was noted to have a small nonobstructing left lower pole joceline stone. Therefore, a urolo gical consultation was requested. In addition to her anal cancer and the kidney stone, this patient does have other problems that include a history of anemia. She has also had an AICD placed, histor y of anxiety and depression, dyslipidemia, migraine headaches, cardiomyopathy and history of IV drug abuse and hepatitis C. The patient has had a tubal ligation. PAST SURGICAL HISTORY: Tubal ligation and the patient also is a 4, para 2, 2 abortions and 2 normal deliveries. Patient has had multiple colonoscopies in the past. She also has had urinary tract infections and she recently was also treated for Clostridium difficile colitis. MEDICATIONS: The home medications, Lopressor 12.5 mg twice a day. She also has been on Cipro for u rinary tract infection. ALLERGIES: SHE IS ALLERGIC TO ZOFRAN. SOCIAL HISTORY: She was a smoker in the past and IV drug abuse. There is no history of alcohol abu se. PHYSICAL EXAMINATION: GENERAL: Reveals a 65-year-old female. She weighs about 61.4 kilograms. She is 64 inches tall. VITAL SIGNS: Show a temperature of 98.8, pulse is 78, respiration is 22, blood pressure 126/60. ABDOMEN: Soft. She does have left flank tenderness and there is no abdominal mass palpable. PELVIC: Not done. RECTAL: Not done because of her bleeding. EXTREMITIES: Reveal no edema. LABORATORY DATA: Her CBC shows a white count of 6.3, hemoglobin 12.9, hematocrit 39.1. BUN is 14, creatinine 0.56. Electrolytes are normal. PT is 13.0, INR 0.98, PTT .3. 1. Again, the CT scan that was done yesterday was reported as a prominent 14 x 11 x 8 mm calculus w ithin the left ureteropelvic junction region which has migrated from the left lower pole renal joceline compared to the patient's prior CT scan from 07/06/2016. There is mild prominence of the pelvis romo ggesting a possible partial obstruction. 2. There is a small nonobstructing left lower pole renal joceline calculi. 3. Moderate retained stool throughout the colon without gross bowel obstruction as previously ident ified. 4. Distended gallbladder. 5. No CT evidence of appendicitis. 6. Degenerative changes within the spine with old severe compression fracture of inferior T12 verte bral body with persistent inferior and gas. IMPRESSION: A 14 x 11 x 8 mm left ureteropelvic junction stone which is probably mild obstruction a nd the patient does have rectal bleeding and she does have rectal anal cancer and she has received r adiation and it appears that she is going to go for EGD and colonoscopy tomorrow. Also, an oncology consultation has been recommended and for now I would wait until her gastrointestinal problem is st abilized and then I also ordered a KUB to see if we could see the stone on the plain film and she ma y need to undergo electromagnetic shockwave lithotripsy for the stone. I will follow her urological problem with you. I do thank you for allowing me to help in her care. Dictated By: JUAN MCKEON/BENJAMIN Conf#: [id number] DID#: [id number]
[2016-07-22] VITALS (10 sets, daily range): BP systolic 102–142; BP diastolic 51–73; PULSE 72–101; RESP 14–21
[2016-07-22] MEDS: LORAZEPAM 2 MG INJ IV PRN ×3 (00:09→17:39)
[2016-07-22] MEDS: CIPROFLOXACIN 500 MG TAB PO SCH ×2 (05:38→17:38)
[2016-07-22] MEDS: PANTOPRAZOLE 40 MG INJ IV SCH ×2 (05:38→17:38)
[2016-07-22 05:42] LABS: ADD SCAN DIFF NO
[2016-07-22 05:59] LABS: BASOPHILS % 0.4 % (0.0-2.0); EOSINOPHILS # 0.1 10^3/ul (0.0-0.5); EOSINOPHILS % 2.6 % (0.0-7.0); HEMATOCRIT 41.1 % (37.0-47.0); HEMOGLOBIN 13.5 g/dl (12.0-16.0); LYMPHOCYTES # 1.4 10^3/ul (0.8-2.9); LYMPHOCYTES % 28.8 % (15.0-51.0); MEAN CORPUSCULAR HEMOGLOBIN 31.8 pg (29.0-33.0); MEAN CORPUSCULAR HGB CONC 32.8 g/dl (32.0-37.0); MEAN CORPUSCULAR VOLUME 96.7 fl (82.0-101.0); MEAN PLATELET VOLUME 10.1 fl (7.4-10.4); MONOCYTE # 0.7 10^3/ul (0.3-0.9); MONOCYTES % 14.4 % (0.0-11.0); NEUTROPHIL # 2.6 10^3/ul (1.6-7.5); NEUTROPHILS % 53.4 % (39.0-77.0); PLATELET COUNT 178 10^3/UL (140-415); RED BLOOD COUNT 4.25 10^6/ul (4.20-5.40); RED CELL DISTRIBUTION WIDTH 12.6 % (11.5-14.5); WHITE BLOOD COUNT 4.9 10^3/ul (4.8-10.8)
[2016-07-22 06:08] LABS: INR 1.01; PROTIME 13.3 Sec (12.2-14.2)
[2016-07-22 06:15] LABS: ALBUMIN 3.7 g/dl (3.3-4.9)
[2016-07-22 06:16] LABS: POTASSIUM 3.7 mmol/L (3.5-5.1)
[2016-07-22 06:18] LABS: ALBUMIN/GLOBULIN RATIO 0.8; BILIRUBIN,INDIRECT 0.5 mg/dl (0-1.1); BILIRUBIN,TOTAL 0.5 mg/dl (0.2-1.3); CREATININE 0.55 mg/dl (0.44-1.00); TOTAL PROTEIN 8.3 g/dl (6.1-8.1)
[2016-07-22 06:19] LABS: CALCIUM 9.2 mg/dl (8.4-10.2); MAGNESIUM 1.8 mg/dl (1.7-2.5); PHOSPHORUS 3.2 mg/dl (2.5-4.9)
[2016-07-22] MEDS: DEXTROSE 5%-0.45% NACL 1,000 ML IV SCH ×2 (08:00→10:53)
[2016-07-22] MEDS: FERROUS SULFATE (EC) 325 MG TAB PO SCH ×2 (09:32→20:19)
[2016-07-22] MEDS: METOPROLOL 25 MG TAB PO SCH ×2 (09:33→20:20)
--- NOTE | 2016-07-22 14:30 | PN ---
Date/Time of Note Date/Time of Note DATE: 07/22/16 TIME: 14:28 Assessment/Plan VTE Prophylaxis VTE Prophylaxis Intervention: SCD's Lines/Catheters IV Catheter Type (from [facility]): Peripheral IV Assessment/Plan Chief Complaint/Hosp Course 1. History of anal cancer status post radiation with recurrent rectal bleeding -plan for EGD/[place] today 2. Left ureteropelvic junction calculus -Uro consult appreciated, possible Lithotripsy 3. History of paroxysmal atrial fibrillation. 4. History of automatic implantable cardioverter-defibrillator. 5. History of cardiomyopathy with ejection fraction of 35% in 2014. 6. Remote history of intravenous drug use with History of hepatitis C PPx- SCD's Problems: Subjective 24 Hr Interval Summary Constitutional: no complaints Exam/Review of Systems Vital Signs Vitals Vital Signs Date Time Temp Pulse Resp B/P Pulse Ox O2 Delivery O2 Flow Rate FiO2 07/22/16 08:28 97.9 78 18 127/64 95 07/21/16 20:00 Room Air Intake and Output 07/21/16 07/21/16 07/22/16 15:00 23:00 07:00 Intake Total 1000 ml 1850 ml 1220 ml Output Total 500 ml Balance 1000 ml 1350 ml 1220 ml Exam Constitutional: alert, oriented Respiratory: clear to auscultation Cardiovascular: regular rate and rhythm Gastrointestinal: soft, No distended Musculoskeletal: nl extremities to inspection Results Result Diagram: 07/22/16 0525 07/22/16 0525 Results 24 hrs Laboratory Tests Test 07/22/16 05:25 Activated Partial Thromboplast Time 29.0 Alanine Aminotransferase (ALT/SGPT) 112 H Albumin 3.7 Albumin/Globulin Ratio 0.80 Alkaline Phosphatase 78 Anion Gap 16 Aspartate Amino Transf (AST/SGOT) 134 H Basophils # 0.0 Basophils % 0.4 Blood Urea Nitrogen 7 Calcium Level 9.2 Carbon Dioxide Level 28 Chloride Level 106 Creatinine 0.55 Direct Bilirubin 0.00 Eosinophils # 0.1 Eosinophils % 2.6 Globulin 4.60 H Glucose Level 95 Hematocrit 41.1 Hemoglobin 13.5 INR International Normalized Ratio 1.01 Indirect Bilirubin 0.5 Lymphocytes # 1.4 Lymphocytes % 28.8 Magnesium Level 1.8 Mean Corpuscular Hemoglobin 31.8 Mean Corpuscular Hemoglobin Concent 32.8 Mean Corpuscular Volume 96.7 Mean Platelet Volume 10.1 Monocytes # 0.7 Monocytes % 14.4 H Neutrophils # 2.6 Neutrophils % 53.4 Nucleated Red Blood Cells # 0.0 Nucleated Red Blood Cells % 0.0 Phosphorus Level 3.2 Platelet Count 178 Potassium Level 3.7 Prothrombin Time 13.3 Prothrombin Time Ratio 1.0 Red Blood Count 4.25 Red Cell Distribution Width 12.6 Sodium Level 146 H Total Bilirubin 0.5 Total Protein 8.3 H White Blood Count 4.9 # Medications Medications Current Medications Dextrose/Sodium Chloride (D5-1/2ns) 1,000 ml @ 100 mls/hr Q10H IV Last administered on 07/22/16 10:53; Admin Dose 100 MLS/HR; Start 07/21/16 at 02:00 Morphine Sulfate (morphine) 2 mg Q4H PRN IV PAIN Last administered on 18:41; Admin Dose 2 MG; Start 07/21/16 at 02:00 Lorazepam (Ativan) 1 mg Q8H PRN IV ANXIETY Last administered on 07/22/16 09:37 ; Admin Dose 1 MG; Start 07/21/16 at 02:00 Ciprofloxacin (Cipro) 500 mg BID@18 PO Last administered on 07/22/16 05:38; Admin Dose 500 MG; Start 07/21/16 at 06:30 Metoprolol Tartrate (Lopressor) 12.5 mg BID PO Last administered on 07/22/16 09 :33; Admin Dose 12.5 MG; Start 07/21/16 at 09:00 Ferrous Sulfate (Ferrous Sulfate (Ec)) 325 mg BID PO Last administered on 09:32; Admin Dose 325 MG; Start 07/21/16 at 09:00 Metoclopramide HCl (Reglan) 5 mg Q6H PRN IV NAUSEA AND/OR VOMITING Last administered on 07/21/16 20:37; Admin Dose 5 MG; Start 07/21/16 at 11:00 Pantoprazole (Protonix Iv) 40 mg BID@,18 IV Last administered on 07/22/16 05: 38; Admin Dose 40 MG; Start 07/21/16 at 18:00 ERIBERTO HALL Jul 22, 2016 14:30
[2016-07-22] MEDS ORDERED: PROPOFOL 20 ML ONE ×2 (15:19→15:20)
[2016-07-22] MEDS ORDERED: FENTAnyl 50 MCG/ML VIAL ONE (15:19)
[2016-07-22] MEDS ORDERED: MIDAZOLAM 1 MG/ML 2 ML INJ ONE ×2 (15:19)
--- NOTE | 2016-07-22 16:25 | GILP ---
DATE OF PROCEDURE: 07/22/2016 INDICATION: The patient is being evaluated for anemia. PREMEDICATION: Monitored anesthesia care by anesthesiologist. SURGEON: Alyssia Horn MD INSTRUMENT USED: Olympus panendoscope. TECHNIQUE: After informed consent, with the patient/relatives understanding the procedure, its indic ations, potential risks and complications, including but not limited to: allergic reaction, bleeding , perforation or infection, and after all pertinent questions were answered to the patients satisfac tion, the patient/relatives signed witnessed informed consent. Following this, premedication was administered slowly IV push under careful cardiovascular and respi ratory monitoring with pulse oximetry, automatic blood pressure and lead solutions architect. Once the sedative effect was achieved the patient was place in the left lateral decubitus, the panen doscope was introduced and advanced under visual control. Careful examination of the upper gastrointestinal tract, both on insertion as well as withdrawal of the instrument disclosed the following findings: ESOPHAGUS: The mucosa of the entire esophagus appears within normal limits. There is no evidence of esophagitis, varices, neoplasm or stricture. No hiatal hernia identified. STOMACH: Upon entrance to the stomach, air was insufflated, the gastric howard distended normally. There is somewhat atypical ulceration in the midbody of the greater curvature of the stomach. The u lceration does not have well-defined borders. Multiple biopsies were obtained. The tissue is soft and pliable. The gastric mucosa shows significant erythema, edema in a diffuse pattern. PYLORUS: The pylorus appears patent and within normal limits, with no evidence of gastric outlet ob struction. DUODENUM: The duodenal mucosa was carefully examined in the duodenal bulb as well as the second por tion of the duodenum and appears unremarkable with no evidence of duodenitis, ulcer or neoplasm. The instrument was then withdrawn, the patient tolerated the procedure well and was transfer out of the endoscopy suite awake, and in good condition to continue recovery under observation IMPRESSION: 1. Atypical gastric ulceration mid body of the stomach. Biopsies were obtained. 2. Gastritis. PLAN: The patient will be treated with PPIs. Further recommendation will depend on review of biops ies as well as patient's clinical course. Dictated By: ALYSSIA HORN MS/BENJAMIN Conf#: [id number] DID#: [id number]
[2016-07-22] MEDS: SUCRALFATE (100 MG/ML) 10ML CUP PO SCH ×2 (17:38→20:19)
[2016-07-22] MEDS: morphine 2 MG INJ IV PRN (19:21)
[2016-07-22] MEDS: MESALAMINE 1000 MG SUPP PR SCH (20:20)
[2016-07-23] VITALS (13 sets, daily range): BP systolic 119–158; BP diastolic 58–91; PULSE 68–90; RESP 15–20
[2016-07-23] MEDS: morphine 2 MG INJ IV PRN ×2 (01:29→17:15)
[2016-07-23] MEDS: DEXTROSE 5%-0.45% NACL 1,000 ML IV SCH ×4 (02:59→17:27)
[2016-07-23 05:31] LABS: ADD SCAN DIFF NO
[2016-07-23 05:38] LABS: BASOPHILS % 0.2 % (0.0-2.0); EOSINOPHILS # 0.2 10^3/ul (0.0-0.5); EOSINOPHILS % 4.3 % (0.0-7.0); HEMATOCRIT 34.7 % (37.0-47.0); HEMOGLOBIN 11.7 g/dl (12.0-16.0); LYMPHOCYTES # 1.4 10^3/ul (0.8-2.9); LYMPHOCYTES % 30.7 % (15.0-51.0); MEAN CORPUSCULAR HEMOGLOBIN 32.5 pg (29.0-33.0); MEAN CORPUSCULAR HGB CONC 33.7 g/dl (32.0-37.0); MEAN CORPUSCULAR VOLUME 96.4 fl (82.0-101.0); MEAN PLATELET VOLUME 9.9 fl (7.4-10.4); MONOCYTE # 0.7 10^3/ul (0.3-0.9); MONOCYTES % 15.2 % (0.0-11.0); NEUTROPHIL # 2.2 10^3/ul (1.6-7.5); NEUTROPHILS % 49.4 % (39.0-77.0); PLATELET COUNT 153 10^3/UL (140-415); RED CELL DISTRIBUTION WIDTH 12.6 % (11.5-14.5); WHITE BLOOD COUNT 4.5 10^3/ul (4.8-10.8)
[2016-07-23] MEDS: PANTOPRAZOLE 40 MG INJ IV SCH ×2 (05:54→18:42)
[2016-07-23] MEDS: CIPROFLOXACIN 500 MG TAB PO SCH ×2 (05:54→18:30)
[2016-07-23 06:19] LABS: POTASSIUM 3.6 mmol/L (3.5-5.1)
[2016-07-23 06:21] LABS: CREATININE 0.63 mg/dl (0.44-1.00)
[2016-07-23 06:22] LABS: CALCIUM 8.5 mg/dl (8.4-10.2)
--- NOTE | 2016-07-23 07:06 | GILP ---
DATE OF PROCEDURE: 07/22/2016 PROCEDURE: Colonoscopy with biopsies. BRIEF HISTORY AND INDICATIONS: The patient is being evaluated for hematochezia, previous history of rectal CA treated with radiation therapy. PREMEDICATION: Monitored anesthesia care by anesthesiologist. FINDINGS: RECTAL EXAM: There is significant perianal irritation and a weak sphincter tone. The colonic mucosa shows submucosal hemorrhagic changes, i.e. petechiae, fairly suggestive of radiat ion injury in the rectum on rectosigmoid area to approximately 25 cm. Biopsies were obtained. The remainder of colonic mucosa was unremarkable. The ileocecal valve was clearly identified and appear s unremarkable. The instrument was withdrawn reexamining the mucosa in detail. No additional abnor malities are noted with exception of large internal hemorrhoids. IMPRESSION: 1. Radiation proctitis. Biopsies obtained. Otherwise, normal colonic mucosa to cecum. 2. Large internal hemorrhoids. 3. Significant perianal irritation. PLAN: The patient will be treated with Canasa suppositories and Calmoseptine ointment to perineum a nd the perianal area. Pathology will be reviewed as soon as available. Further recommendation will depend on the patient' s clinical course as well as review of biopsies. Dictated By: ALYSSIA FLANNERY MS/BENJAMIN Conf#: [id number] DID#: [id number] CC: ALYSSIA FLANNERY;*EndCC*
[2016-07-23] MEDS: FERROUS SULFATE (EC) 325 MG TAB PO SCH ×2 (08:03→23:09)
[2016-07-23] MEDS: SUCRALFATE (100 MG/ML) 10ML CUP PO SCH ×4 (08:03→23:09)
[2016-07-23] MEDS: METOPROLOL 25 MG TAB PO SCH ×2 (08:09→23:09)
[2016-07-23] MEDS: LORAZEPAM 2 MG INJ IV PRN ×2 (10:45→23:19)
--- NOTE | 2016-07-23 14:29 | CONS ---
Date/Time of Note Date/Time of Note DATE: 07/23/16 TIME: 14:24 Assessment/Plan Assessment/Plan Additional Assessment/Plan History of rectal cancer * Colonoscopy: 1. Radiation proctitis. Biopsies obtained. Otherwise, normal colonic mucosa to cecum. 2. Large internal hemorrhoids. 3. Significant perianal irritation. * Start Canasa suppositories and Calmoseptine ointment to perineum and the perianal area. * Recommend oncology consult * Review pathology Anemia * Monitor hemoglobin every 8 hours, transfuse 2 units for hemoglobin less than 7.5 * EGD: 1. Atypical gastric ulceration mid body of the stomach. Biopsies were obtained. 2. Gastritis * PPI twice daily * Review pathology History of hepatitis C * Hep C genotype and RNA * Recommend outpatient follow-up with GI/hepatology History of paroxysmal atrial fibrillation History of automatic implantable cardioverter-defibrillator History of cardiomyopathy with ejection fraction of 35% in 2014 * Recommend cardiology consult Left ureteropelvic junction calculus. Recently diagnosed urinary tract infection as an outpatient, on Cipro History of depression/anxiety/panic attack. Remote history of intravenous drug use. Further recommendations pending clinical course Patient seen in collaboration with Dr. Horn Consultation Date/Type/Reason Admit Date/Time Jul 21, 2016 at 00:36 Initial Consult Date Type of Consultation: Gastroenterology 24 HR Interval Summary Free Text/Dictation Advised patient of EGD and colonoscopy results Possible lithotripsy with nephrology planned today We will review pathology Exam/Review of Systems Vital Signs Vitals Vital Signs Date Time Temp Pulse Resp B/P Pulse Ox O2 Delivery O2 Flow Rate FiO2 07/23/16 07:54 98.2 84 18 145/67 97 07/22/16 19:45 Room Air Intake and Output 07/22/16 07/22/16 07/23/16 15:00 23:00 07:00 Intake Total 400 ml 360 ml 1200 ml Output Total 400 ml 125 ml Balance 400 ml -40 ml 1075 ml Exam Constitutional: alert, oriented, other (thin) Psych: anxiety Head: normocephalic Eyes: EOMI, nl conjunctiva, nl lids ENMT: nl external ears & nose, nl lips & teeth, nl nasal mucosa & septum Respiratory: normal air movement Cardiovascular: regular rate and rhythm Gastrointestinal: soft, tender (suprapubic tenderness) Musculoskeletal: nl extremities to inspection 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 Results Result Diagram: 07/23/16 0520 07/23/16 0520 Results 24 hrs Laboratory Tests Test 07/23/16 05:20 Anion Gap 13 Basophils # 0.0 Basophils % 0.2 Blood Urea Nitrogen 5 L Calcium Level 8.5 Carbon Dioxide Level 25 Chloride Level 109 Creatinine 0.63 Eosinophils # 0.2 Eosinophils % 4.3 Glucose Level 97 Hematocrit 34.7 L Hemoglobin 11.7 L Lymphocytes # 1.4 Lymphocytes % 30.7 Mean Corpuscular Hemoglobin 32.5 Mean Corpuscular Hemoglobin Concent 33.7 Mean Corpuscular Volume 96.4 Mean Platelet Volume 9.9 Monocytes # 0.7 Monocytes % 15.2 H Neutrophils # 2.2 Neutrophils % 49.4 Nucleated Red Blood Cells # 0.0 Nucleated Red Blood Cells % 0.0 Platelet Count 153 Potassium Level 3.6 Red Blood Count 3.60 L Red Cell Distribution Width 12.6 Sodium Level 143 White Blood Count 4.5 L Medications Medications Current Medications Dextrose/Sodium Chloride (D5-1/2ns) 1,000 ml @ 100 mls/hr Q10H IV Last administered on 07/23/16 02:59; Admin Dose 100 MLS/HR; Start 07/21/16 at 02:00 Morphine Sulfate (morphine) 2 mg Q4H PRN IV PAIN Last administered on 07/23/16 01:29; Admin Dose 2 MG; Start 07/21/16 at 02:00 Lorazepam (Ativan) 1 mg Q8H PRN IV ANXIETY Last administered on 07/23/16 10:45 ; Admin Dose 1 MG; Start 07/21/16 at 02:00 Ciprofloxacin (Cipro) 500 mg BID@06,18 PO Last administered on 07/23/16 05:54; Admin Dose 500 MG; Start 07/21/16 at 06:30 Metoprolol Tartrate (Lopressor) 12.5 mg BID PO Last administered on 07/23/16 08 :09; Admin Dose 12.5 MG; Start 07/21/16 at 09:00 Ferrous Sulfate (Ferrous Sulfate (Ec)) 325 mg BID PO Last administered on 08:03; Admin Dose 325 MG; Start 07/21/16 at 09:00 Metoclopramide HCl (Reglan) 5 mg Q6H PRN IV NAUSEA AND/OR VOMITING Last administered on 07/21/16 20:37; Admin Dose 5 MG; Start 07/21/16 at 11:00 Pantoprazole (Protonix Iv) 40 mg BID@18 IV Last administered on 07/23/16 05: 54; Admin Dose 40 MG; Start 07/21/16 at 18:00 Sucralfate (Carafate Susp) 1 gm QID PO Last administered on 07/23/16 13:48; Admin Dose 1 GM; Start 07/22/16 at 17:00 Mesalamine (Canasa Supp) 1,000 mg HS [place] Last administered on 07/22/16 20:20; Admin Dose 1,000 MG; Start 07/22/16 at 21:00 RAY ACE Jul 23, 2016 14:29
--- NOTE | 2016-07-23 15:02 | PN ---
Date/Time of Note Date/Time of Note DATE: 07/23/16 TIME: 14:56 Assessment/Plan VTE Prophylaxis VTE Prophylaxis Intervention: SCD's Lines/Catheters IV C[facility]ter Type [facility]from [facility]): Peripheral IV Assessment/Plan Chief Complaint/Hosp Course 1. History of anal cancer status post radiation with recurrent rectal bleeding -[place] showed Radiation proctitis and Large internal hemorrhoids with significant perianal irritation. -EGD showed Atypical gastric ulceration mid body of the stomach. Gastritis. -Cont Canasa suppositories and Calmoseptine ointment to perineum and the perianal area 2. Left ureteropelvic junction calculus -Uro consult appreciated, possible Lithotripsy 3. History of paroxysmal atrial fibrillation 4. Remote history of intravenous drug use with History of hepatitis C 5. History of cardiomyopathy with ejection fraction of 35% s/p AICD -no acute issue PPx- SCD's Problems: Subjective 24 Hr Interval Summary Musculoskeletal: back pain Exam/Review of Systems Vital Signs Vitals Vital Signs Date Time Temp Pulse Resp B/P Pulse Ox O2 Delivery O2 Flow Rate FiO2 07/23/16 07:54 98.2 84 18 145/67 97 07/22/16 19:45 Room Air Intake and Output 07/22/16 07/22/16 07/23/16 15:00 23:00 07:00 Intake Total 400 ml 360 ml 1200 ml Output Total 400 ml 125 ml Balance 400 ml -40 ml 1075 ml Exam Constitutional: alert, oriented Respiratory: clear to auscultation Cardiovascular: regular rate and rhythm Gastrointestinal: soft, No distended Musculoskeletal: nl extremities to inspection Results Result Diagram: 07/23/16 0520 07/23/16 0520 Results 24 hrs Laboratory Tests Test 07/23/16 05:20 Anion Gap 13 Basophils # 0.0 Basophils % 0.2 Blood Urea Nitrogen 5 L Calcium Level 8.5 Carbon Dioxide Level 25 Chloride Level 109 Creatinine 0.63 Eosinophils # 0.2 Eosinophils % 4.3 Glucose Level 97 Hematocrit 34.7 L Hemoglobin 11.7 L Lymphocytes # 1.4 Lymphocytes % 30.7 Mean Corpuscular Hemoglobin 32.5 Mean Corpuscular Hemoglobin Concent 33.7 Mean Corpuscular Volume 96.4 Mean Platelet Volume 9.9 Monocytes # 0.7 Monocytes % 15.2 H Neutrophils # 2.2 Neutrophils % 49.4 Nucleated Red Blood Cells # 0.0 Nucleated Red Blood Cells % 0.0 Platelet Count 153 Potassium Level 3.6 Red Blood Count 3.60 L Red Cell Distribution Width 12.6 Sodium Level 143 White Blood Count 4.5 L Medications Medications Current Medications Dextrose/Sodium Chloride (D5-1/2ns) 1,000 ml @ 100 mls/hr Q10H IV Last administered on 07/23/16 02:59; Admin Dose 100 MLS/HR; Start 07/21/16 at 02:00 Morphine Sulfate (morphine) 2 mg Q4H PRN IV PAIN Last administered on 07/23/16 01:29; Admin Dose 2 MG; Start 07/21/16 at 02:00 Lorazepam (Ativan) 1 mg Q8H PRN IV ANXIETY Last administered on 07/23/16 10:45 ; Admin Dose 1 MG; Start 07/21/16 at 02:00 Ciprofloxacin (Cipro) 500 mg BID@,18 PO Last administered on 07/23/16 05:54; Admin Dose 500 MG; Start 07/21/16 at 06:30 Metoprolol Tartrate (Lopressor) 12.5 mg BID PO Last administered on 07/23/16 08 :09; Admin Dose 12.5 MG; Start 07/21/16 at 09:00 Ferrous Sulfate (Ferrous Sulfate (Ec)) 325 mg BID PO Last administered on 08:03; Admin Dose 325 MG; Start 07/21/16 at 09:00 Metoclopramide HCl (Reglan) 5 mg Q6H PRN IV NAUSEA AND/OR VOMITING Last administered on 07/21/16 20:37; Admin Dose 5 MG; Start 07/21/16 at 11:00 Pantoprazole (Protonix Iv) 40 mg BID@18 IV Last administered on 07/23/16 05: 54; Admin Dose 40 MG; Start 07/21/16 at 18:00 Sucralfate (Carafate Susp) 1 gm QID PO Last administered on 07/23/16 13:48; Admin Dose 1 GM; Start 07/22/16 at 17:00 Mesalamine (Canasa Supp) 1,000 mg HS VA Last administered on 07/22/16 20:20; Admin Dose 1,000 MG; Start 07/22/16 at 21:00 ERIBERTO HALL Jul 23, 2016 15:01
--- NOTE | 2016-07-23 20:17 | HPN ---
Date/Time of Note Date/Time of Note DATE: 07/23/16 TIME: 20:17 Interval H&P Admission Note Pt. seen H&P reviewed: No system changes JUAN EVANS MD Jul 23, 2016 20:17
[2016-07-23] MEDS ORDERED: morphine (1 MG/ML) 10ML SYRINGE IV PRN ×2 (20:30)
[2016-07-23] MEDS ORDERED: FENTAnyl 50 MCG/ML VIAL IV PRN ×2 (20:30)
[2016-07-23] MEDS ORDERED: DIPHENHYDRAMINE 50 MG INJ IV PRN (20:30)
[2016-07-23] MEDS ORDERED: MIDAZOLAM 1 MG/ML 2 ML INJ IV PRN (20:30)
[2016-07-23] MEDS ORDERED: METOCLOPRAMIDE 10 MG INJ IV PRN (20:30)
[2016-07-23] MEDS ORDERED: MEPERIDINE 25 MG INJ IV PRN (20:30)
[2016-07-23] MEDS ORDERED: GLYCOPYRROLATE 0.4 MG INJ ONE ×2 (20:33→21:23)
[2016-07-23] MEDS ORDERED: LIDOCAINE 2% (SDV) 5 ML INJ ONE (20:33)
[2016-07-23] MEDS ORDERED: ROCURONIUM 50 MG INJ ONE (20:34)
[2016-07-23] MEDS ORDERED: SUCCINYLCHOLINE CHLORIDE 100 MG/5 ML SYG IV ONE (20:34)
[2016-07-23] MEDS ORDERED: PROPOFOL 20 ML ONE (20:34)
[2016-07-23] MEDS ORDERED: NEOSTIGMINE 3 MG/3 ML SYRINGE ONE (20:34)
[2016-07-23] MEDS: MESALAMINE 1000 MG SUPP PR SCH (21:00)
[2016-07-23] MEDS ORDERED: METOCLOPRAMIDE 10 MG INJ ONE (21:23)
[2016-07-23] MEDS ORDERED: ONDANSETRON 4 MG INJ ONE (21:23)
[2016-07-23] MEDS ORDERED: CEFAZOLIN 1 GM INJ ONE (21:23)
--- NOTE | 2016-07-23 23:22 | RADRPT ---
PROCEDURE: Intraoperative imaging of the abdomen and pelvis with fluoroscopy. CLINICAL INDICATION: Left renal calculus. Intraoperative. TECHNIQUE: 12 images of the abdomen and pelvis were obtained in the operating room with an image i ntensifier. No radiologist was in attendance. 280.2 seconds of fluoroscopy time was used. COMPARISON: Abdomen radiograph dated 07/21/2016. FINDINGS: Images demonstrate fluoroscopic guidance for ESWL of a calculus at the left ureteropelvic junction. IMPRESSION: 1. Satisfactory intraoperative imaging of the abdomen and pelvis. RPTAT: QQ .Shakir Gardner MD, Date Time Electronically viewed and signed by .Shakir Gardner MD, on 07/23/2016 23:22 .R/
--- NOTE | 2016-07-24 01:31 | OPR ---
DATE OF OPERATION: 07/23/2016 PREOPERATIVE DIAGNOSIS: Left ureteropelvic junction stone measuring about 11 mm in size. POSTOPERATIVE DIAGNOSIS: Left ureteropelvic junction stone measuring about 11 mm in size. OPERATION PERFORMED: Left extracorporeal shock wave lithotripsy. TECHNIQUE: The patient was brought to the operating room, given general anesthesia. She was positi oned in the supine position on the lithotripsy machine table. The stone at the left ureteropelvic j unction was visible on the fluoroscopy. Therefore, it was localized on both fluoroscopy and plain. Once it was localized, then the lithotripsy was done with extracorporeal shock wave. The position of the stone was regularly checked up. The stone appeared to break very easily and fast. In fact b y about 500 shockwaves, one could see the stone breaking. Then we continued, however. We removed t he shock. Then, we looked again. We did see the shadow of the stone. Then we gave her more shock waves. We gave a total of 2000 shock waves to make sure that the stone does break into small pieces that she will be able to pass. At the end of the procedure, the patient tolerated the procedure we ll and she was transferred to the recovery room in stable and satisfactory condition. Dictated By: JUAN EVANS MD BB/BENJAMIN Conf#: [id number] DID#: [id number] CC: KEN MARIE MD;*End*
[2016-07-24] MEDS: DEXTROSE 5%-0.45% NACL 1,000 ML IV SCH (05:32)
[2016-07-24] MEDS: PANTOPRAZOLE 40 MG INJ IV SCH (05:32)
[2016-07-24] MEDS: CIPROFLOXACIN 500 MG TAB PO SCH (05:32)
[2016-07-24 07:53] VITALS: BP 123/65; RESP 18
[2016-07-24] MEDS: FERROUS SULFATE (EC) 325 MG TAB PO SCH (08:09)
[2016-07-24] MEDS: SUCRALFATE (100 MG/ML) 10ML CUP PO SCH ×2 (08:09→12:53)
[2016-07-24] MEDS: METOPROLOL 25 MG TAB PO SCH (08:10)
[2016-07-24] MEDS: LORAZEPAM 2 MG INJ IV PRN (08:12)
--- NOTE | 2016-07-24 09:34 | RADRPT ---
PROCEDURE: X-ray, Abdomen. CLINICAL INDICATION: Left renal stone. TECHNIQUE: Abdominal x-ray, single view. COMPARISON: Abdominal x-ray 07/21/2016. CT abdomen/pelvis 07/20/2016. FINDINGS: A nonobstructive bowel gas pattern is present. There is no evidence of free intra-abdominal air. Th e left ureteropelvic junction stone is no longer visualized. Phleboliths are seen within the pelvis and are unchanged. There is no evidence of new intra-abdominal calcification. Degenerative change s of the spine are present. IMPRESSION: No radiographic evidence of acute intra-abdominal pathology. RPTAT: DD .Julia Foss MD, MD Date Time Electronically viewed and signed by .Julia Foss MD, MD on 07/24/2016 09:34 .T/
--- NOTE | 2016-07-24 14:14 | CONS ---
Date/Time of Note Date/Time of Note DATE: 07/24/16 TIME: 14:09 Assessment/Plan Assessment/Plan Additional Assessment/Plan istory of rectal cancer * Colonoscopy: 1. Radiation proctitis. Biopsies negative for dysplasia and malignancy. Otherwise, normal colonic mucosa to cecum. 2. Large internal hemorrhoids. 3. Significant perianal irritation. * Start Canasa suppositories and Calmoseptine ointment to perineum and the perianal area. * Recommend oncology consult Anemia * Monitor hemoglobin daily, transfuse 2 units for hemoglobin less than 7.5 * EGD: 1. Atypical gastric ulceration mid body of the stomach. Biopsies were obtained. 2. Gastritis * PPI twice daily History of hepatitis C * Hep C genotype and RNA * Recommend outpatient follow-up with GI/hepatology History of paroxysmal atrial fibrillation History of automatic implantable cardioverter-defibrillator History of cardiomyopathy with ejection fraction of 35% in 2014 * Recommend cardiology consult Further recommendations depend on clinical course GI sign off. Consultation available as needed Patient seen in collaboration with Dr. Horn Consultation Date/Type/Reason Admit Date/Time Jul 21, 2016 at 00:36 Type of Consultation: Gastroenterology 24 HR Interval Summary Free Text/Dictation Patient status post shockwave lithotripsy EGD pathology negative for H. pylori and malignancy GI sign off Exam/Review of Systems Vital Signs Vitals Vital Signs Date Time Temp Pulse Resp B/P Pulse Ox O2 Delivery O2 Flow Rate FiO2 07/24/16 07:53 98.7 90 18 123/65 93 07/23/16 22:50 Room Air 07/23/16 21:50 8.0 Intake and Output 07/23/16 07/23/16 07/24/16 15:00 23:00 07:00 Intake Total 1700 ml 1300 ml Output Total 2400 ml 1100 ml Balance -700 ml 200 ml Exam Constitutional: alert, oriented, other (thin) Psych: anxiety Head: normocephalic Eyes: EOMI, nl conjunctiva, nl lids ENMT: nl external ears & nose, nl lips & teeth, nl nasal mucosa & septum Respiratory: normal air movement Cardiovascular: regular rate and rhythm Gastrointestinal: soft, non tender Musculoskeletal: nl extremities to inspection Neurological: FURNACE MAINTENANCE II-XII intact Results Result Diagram: 07/23/16 0520 07/23/16 0520 Medications Medications Current Medications Dextrose/Sodium Chloride (D5-1/2ns) 1,000 ml @ 100 mls/hr Q10H IV Last administered on 07/24/16 05:32; Admin Dose 100 MLS/HR; Start 07/21/16 at 02:00 Morphine Sulfate (morphine) 2 mg Q4H PRN IV PAIN Last administered on 07/23/16 17:15; Admin Dose 2 MG; Start 07/21/16 at 02:00 Lorazepam (Ativan) 1 mg Q8H PRN IV ANXIETY Last administered on 07/24/16 08:12 ; Admin Dose 1 MG; Start 07/21/16 at 02:00 Ciprofloxacin (Cipro) 500 mg BID@06,18 PO Last administered on 07/24/16 05:32; Admin Dose 500 MG; Start 07/21/16 at 06:30 Metoprolol Tartrate (Lopressor) 12.5 mg BID PO Last administered on 07/24/16 08 :10; Admin Dose 12.5 MG; Start 07/21/16 at 09:00 Ferrous Sulfate (Ferrous Sulfate (Ec)) 325 mg BID PO Last administered on 08:09; Admin Dose 325 MG; Start 07/21/16 at 09:00 Metoclopramide HCl (Reglan) 5 mg Q6H PRN IV NAUSEA AND/OR VOMITING Last administered on 07/21/16 20:37; Admin Dose 5 MG; Start 07/21/16 at 11:00 Pantoprazole (Protonix Iv) 40 mg BID@06,18 IV Last administered on 07/24/16 05: 32; Admin Dose 40 MG; Start 07/21/16 at 18:00 Sucralfate (Carafate Susp) 1 gm QID PO Last administered on 07/24/16 12:53; Admin Dose 1 GM; Start 07/22/16 at 17:00 Mesalamine (Canasa Supp) 1,000 mg HS DE Last administered on 07/22/16 20:20; Admin Dose 1,000 MG; Start 07/22/16 at 21:00 RAY ACE Jul 24, 2016 14:14
[2016-07-24] MEDS ORDERED: CANA1000R PR (14:48)
[2016-07-24] MEDS ORDERED: CARAS PO (14:48)
--- NOTE | 2016-07-24 14:50 | PDOCDIS ---
Discharge Instructions CONDITION Patient Condition: Good HOME CARE INSTRUCTIONS: Diet Instructions: Regular ACTIVITY: Activity Restrictions: No Restrictions FOLLOW UP/APPOINTMENTS Appointments F/U WITH YOUR PCP IN 1-2 WEEKS, F/U WITH DR EVANS IN 1-2 WEEKS AND F/U WITH DR FLANNERY OF ERIB[facility]O NERI Jul 24, 2016 14:50
[2016-07-24] MEDS: morphine 2 MG INJ IV PRN (15:16)
--- NOTE | 2016-07-24 17:32 | DS ---
DATE OF ADMISSION: 07/21/2016 DATE OF DISCHARGE: 07/23/2016 DISCHARGE DIAGNOSES: 1. History of anal cancer, status post radiation with recurrent rectal bleeding, status post colono scopy and EGD during this hospitalization. Colonoscopy showed radiation proctitis and large interna l hemorrhoids with perianal irritation. EGD showed atypical gastric ulceration. Patient will be di scharged with Canasa suppositories and Carafate by mouth. 2. Nephrolithiasis, status post lithotripsy, she will follow with Dr. Figueroa as an outpatient. 3. History of rectal cancer. No acute issues. 4. Paroxysmal atrial fibrillation. 5. History of IV drug use with hepatitis C. 6. History of cardiomyopathy with an ejection fraction (EF) of 35%, status post ICD, no acute issue s. HOSPITAL COURSE: The patient is a 65-year-old female with a history of anal cancer status radiation , anemia, cardiomyopathy status post AICD, anxiety, depression, dyslipidemia, migraine headaches, ki dney stones. The patient has a history of IV drug use and hepatitis C. The patient presents with r ectal bleed. She was seen by GI. Of note, H and H was stable. The patient had an EGD and colonosc opy. EGD showed atypical gastric ulceration, gastritis and colonoscopy showed radiation proctitis a nd large internal hemorrhoids with significant perianal irritation. The patient was started on Tracie fate p.o. and mesalamine suppositories. The patient was seen by urologist, Dr. Figueroa, and she was noted to have a left ureteral pelvic junction stone which was noted on abdominal pelvis CT. The mateus osorio underwent a lithotripsy of that left sided stone. She was felt to be stable. She was cleared for discharge per urology and there are no other plans from a GI perspective. The patient was felt to be stable for discharge. On day of discharge, the patient's vitals, labs, physical exam were st able. She had no acute complaints. Questions were answered. CONDITION ON DISCHARGE: Stable. DISPOSITION: To home. MEDICATIONS: The patient was given a prescription for mesalamine 1000 mg per rectum at bedtime and Carafate 1 gram p.o. four times a day for 30 days. The patient was told to stop taking Cipro, she w as told to continue taking her home metoprolol, followup with her PCP in 1 to [address] Ga sierra in 2 to [address] Horn with GI. Greater than 30 minutes were spent coordinating discharge of this patient. Dictated By: ERIBERTO AHLL MD BS/NTS Conf#: [id number] DID#: [id number]
--- NOTE | 2016-07-24 20:14 | PN ---
DATE: 07/24/2016 SUBJECTIVE: The patient had a left ureteropelvic junction stone with hydronephrosis. The patient u nderwent left extracorporeal shock wave lithotripsy yesterday. She is feeling better today. OBJECTIVE FINDINGS: VITAL SIGNS: Her temperature is 98.7. The pulse is 90, respiration 18, blood pressure 123/65. ABDOMEN: Soft. The patient is voiding. The urine is clear. LABORATORY DATA: Her CBC is from yesterday. No lab work was done today. The KUB that she had this morning showed that the stone that was visible before at the left ureteropelvic junction is no long er visualized. IMPRESSION: Status post extracorporeal shock wave lithotripsy. The patient is doing well and, ther efore, from a urological standpoint, the patient may be discharged home and she should follow up wit h my office in about 2 to 3 weeks. Dictated By: JUAN MCKEON/BENJAMIN Conf#: [id number] DID#: [id number]
== END 2016-07-24 18:35 | disposition home or self-care (01) | DRG 988 ==
LOC: E/R 19:46 → MS2 07-21 00:36
PROVIDERS: ADMIT Internal Medicine; ATTEND Internal Medicine
PROC: 0DBP8ZX Excision of Rectum, Via Natural or Artificial Opening Endoscopic, Diagnostic (ICD-10-PCS; 2016-07-22)
PROC: 0DB68ZX Excision of Stomach, Via Natural or Artificial Opening Endoscopic, Diagnostic (ICD-10-PCS; principal; 2016-07-22 17:30)
PROC: 0TC73ZZ Extirpation of Matter from Left Ureter, Percutaneous Approach (ICD-10-PCS; 2016-07-23)
DX: K62.5 Hemorrhage of anus and rectum (principal); N20.2 Calculus of kidney with calculus of ureter; K25.9 Gastric ulcer, unspecified as acute or chronic, without hemorrhage or perforation; K62.7 Radiation proctitis; K64.8 Other hemorrhoids; K29.70 Gastritis, unspecified, without bleeding; I48.91 Unspecified atrial fibrillation; Z85.048 Personal history of other malignant neoplasm of rectum, rectosigmoid junction, and anus; Z87.891 Personal history of nicotine dependence; Z95.810 Presence of automatic (implantable) cardiac defibrillator
CPT/HCPCS: 36415; 74000; 74176; 74430; 80048; 80053; 81001; 81003; 82270; 82728; 83540; 83690; 83735; 84100; 85025; 85610; 85730; 87075; 88305; 88312; 88313; 96374; C9113; J0330; J0690; J1170; J2060; J2175; J2250; J2270; J2405; J2710; J2765; J3010; J7040; J7042

== ENCOUNTER 2016-07-26 22:01 | Emergency (ER) | payer OTHER ==
[~2016-07-26] VITALS: Ht 165.1 cm; Wt 54.5 kg
[~2016-07-26 22:01] MED LIST changes: -ALPR2TAB3 PO; -AMIO200T2 PO; -ASPI81TA3 PO; -BACTDS PO; +CANA1000R PR; +CARAS PO; -CARV12.579 PO; -CEPH-443 PO; -CYCL-319 PO; -DOCU-144 PO; -DONE5TAB46 PO; -FLEETOIL RC; -GUAN1TAB28 PO; -HYDR-762 PO; +METO-448 PO; -OXCA150T43 PO; -PRAV10TA43 PO; -SERT50TA PO; -TRAM50TA2 PO; -ZOLP5TAB6 PO
[2016-07-26 22:26] VITALS: Ht 165.1 cm; Wt 54.5 kg
[2016-07-27] MEDS ORDERED: HYDROCODONE/APAP (5/325) TAB PO ONE (01:00)
[2016-07-27] MEDS ORDERED: HYDR-906 PO (01:12)
--- NOTE | 2016-07-27 01:14 | ERD ---
ER Documentation Chief Complaint Date/Time DATE: 07/27/16 TIME: 01:13 Chief Complaint NEEDS RX CHANGED, ORIGINAL RX NOT COVERED BY INSURANCE. HPI Patient is a 65-year-old female with a past medical history of kidney stones, rectal cancer, anal cancer, IV drug use hepatitis C who presents to the emergency department for a medication change. Patient states that she was recently prescribed mesalamine and Carafate however today when she went to go fill her prescription it was not covered by her insurance. Patient states that she is here to have her prescriptions changed. Patient states that she did attempt to call her GI specialist, however she was unable to get a hold of him. Patient states that she is having some left-sided flank pain however this is a chronic issue. Patient denies any fever, chills, chest pain, abdominal pain, vomiting or LOC. Patient is requesting medication for her pain at this time as well. Patient states that she was not provided with a prescription for her pain upon discharge from recent hospitalization. ROS All systems reviewed and are negative except as per history of present illness. Medications Home Meds Active Scripts Hydrocodone/Acetaminophen ([place] 5-325 Tablet) 1 Each Tablet, 1 TAB PO Q6H Y for PAIN, #5 TAB Prov:DAMIAN RAMIREZ PA-C 07/27/16 Sucralfate* (Carafate*) 1 Gm/10 Ml Susp, 1 GM PO QID for 30 Days, 1 Refill Prov:ERIBERTO HALL 07/24/16 Mesalamine* (Canasa*) 1,000 Mg Supp, 1000 MG KS HS for 30 Days, SUPP 1 Refill Prov:ERIBERTO HALL 07/24/16 Reported Medications Metoprolol Tartrate* (Lopressor*) 25 Mg Tab, 12.5 MG PO BID, #60 TAB 07/20/16 Discontinued Reported Medications Ciprofloxacin Hcl* (Ciprofloxacin Hcl*) 500 Mg Tablet, 500 MG PO BID, #14 TAB 07/20/16 Donepezil* (Aricept*) 5 Mg Tablet, 5 MG PO DAILY, #30 06/05/15 Oxcarbazepine* (Oxcarbazepine*) 150 Mg Tablet, 150 MG PO DAILY, #30 06/05/15 Guanfacine Hcl* (Guanfacine Hcl*) 1 Mg Tablet, 1 MG PO HS, TAB 05/17/15 Alprazolam* (Alprazolam* ER) 2 Mg Tab.sr.24h, 2 MG PO DAILY Y for ANXIETY, #60 05/17/15 Carvedilol* (Carvedilol*) 12.5 Mg Tablet, 12.5 MG PO BID, #60 05/17/15 Zolpidem Tartrate* (Zolpidem Tartrate*) 5 Mg Tablet, 5 MG PO QHS Y for SLEEP, # 30 05/17/15 Amiodarone Hcl* (Amiodarone Hcl*) 200 Mg Tablet, 200 MG PO DAILY, TAB 01/23/15 Aspirin* (Aspirin* Chew) 81 Mg Tab.chew, 81 MG PO DAILY, TAB.CHEW 01/23/15 Pravastatin Sodium* (Pravastatin Sodium*) 10 Mg Tablet, 10 MG PO DAILY, TAB 11/09/13 Discontinued Scripts Tramadol HCl (Tramadol HCl) 50 Mg Tablet, 50 MG PO Q6H Y for PAIN, #30 TAB Prov:KEN SEO 07/06/16 Mineral Oil (Fleet Mineral Oil Enema) 133 Ml Enema, 133 ML RC DAILY for 3 Days, ENEMA Prov:KEN SEO 07/06/16 Docusate Sodium* (Colace*) 100 Mg Capsule, 100 MG PO BID, #60 CAP Prov:KEN SEO 07/06/16 Sulfamethoxazole-Trimethoprim* (Bactrim* DS) 800-160 Mg Tab, 1 TAB PO BID for 7 Days, TAB Prov:JACEK HOWELL MD 10/09/15 Cephalexin* (Keflex*) 500 Mg Capsule, 500 MG PO QID for 7 Days, CAP Prov:JACEK HOWELL MD 10/09/15 Hydrocodone Bit-Acetaminophen* ([place]*) 10-325 Mg Tablet, 1 TAB PO Q6 Y for PAIN , #7 TAB Prov:JACEK HOWELL MD 10/09/15 Tramadol HCl (Tramadol HCl) 50 Mg Tablet, 50 MG PO Q6 Y for PAIN, #10 TAB Prov:EV PIRES MD 06/17/15 Sertraline Hcl* (Zoloft*) 50 Mg Tab, 50 MG PO DAILY, #60 TAB Prov:ERIBERTO HALL 06/10/15 Docusate Sodium* (Colace*) 100 Mg Cap, 100 MG PO Q12H Y for CONSTIPATION for 30 Days, CAP Prov:BYRON CEBALLOS MD 05/23/15 Cyclobenzaprine Hcl* (Cyclobenzaprine Hcl*) 10 Mg Tab, 5 MG PO BID for 30 Days, TAB Prov:BYRON CEBALLOS MD 05/23/15 Allergies Allergies: Coded Allergies: ondansetron (Verified Allergy, Severe, HYPOTENSION,VOMIT, 07/26/16) PMhx/Soc History of Surgery: Yes Anesthesia Reaction: No Hx Neurological Disorder: Yes (migraines ) Hx Respiratory Disorders: No Hx Cardiac Disorders: Yes Hx Psychiatric Problems: Yes (anxiety, depression, panic attacks) Hx Miscellaneous Medical Probl: No Hx Alcohol Use: No Hx Substance Use: No Hx Tobacco Use: No Physical Exam Vitals Vital Signs Date Time Temp Pulse Resp B/P Pulse Ox O2 Delivery O2 Flow Rate FiO2 07/27/16 01:59 98.0 81 18 156/78 99 Room Air 07/27/16 00:07 92 07/26/16 22:26 98.4 80 18 180/98 99 Physical Exam GENERAL: Well-developed, well-nourished female. Appears in no acute distress. HEAD: Normocephalic, atraumatic. EYES: Pupils are equally reactive bilaterally. EOMs grossly intact. No conjunctival erythema. ENT: Moist mucous membranes. No uvula deviation. No kissing tonsils. NECK: Supple. No meningismus. Normal range of motion of the neck. LUNG: Clear to auscultation bilaterally. No rhonchi, wheezing, rales or coarse breath sounds. HEART: Regular rate and rhythm. No murmurs, rubs or gallops. ABDOMEN: No scars, ecchymosis or rashes noted. Soft, nontender, and nondistended. Positive bowel sounds in all four quadrants. No rebound tenderness , no guarding. (-) McBurney's point tenderness. L CVA tenderness. EXTREMITIES: Equal pulses bilaterally. No peripheral clubbing, cyanosis or edema. No unilateral leg swelling. NEUROLOGIC: Alert and oriented. Moving all four extremities without any difficulty. Normal speech. Steady gait. SKIN: Normal color. Warm and dry. No rashes or lesions. Results 24 hrs Current Medications Medications (Trade) Dose Ordered Sig/Paola Route PRN Reason Start Time Stop Time Status Last Admin Dose Admin Acetaminophen/ Hydrocodone Bitart ([place] (5/325)) 1 tab ONCE ONCE PO 07/27/16 01:00 07/27/16 01:01 DC 07/27/16 01:08 Procedures/MDM MEDICAL DECISION MAKING: Patient is a 65 year old female with PMHx of anal cancer, rectal cancer, nephrolithiasis who presents for medication change. Patient states that she went to the pharmacy today to fill prescriptions of Mesalamine and Carafate and she was told that her insurance does not cover these medications. Patient is also requesting a prescription for pain medication. Vital signs were reviewed. Patient is afebrile. Patient was not hypoxic. Given that patient stated that she was in current pain, patient was given a [place] tab here in the ED. Patient will be prescribed a short course of [place] for pain control for the next few days. I had a discussion with the patient and her that at this time, I am unable to change her GI medications given that these are specialty medications that her GI doctor should be managing. Patient was advised to call her GI specialist tomorrow morning to have these medications change. Patient will need to call or see her PCP for further management of her pain. Patient is in agreement with this plan. PRESCRIPTION: [place], 5 tabs, 0 refills DISCHARGE: At this time, patient is stable for discharge and outpatient management. I have instructed the patient to follow-up with his/her primary care physician/ GI specialist in 1-2 days. I have discussed with the patient the possibility of needing to see a specialist for further workup and imaging studies if symptoms persist. I have instructed the patient to promptly return to the ER for any new or worsening symptoms including increased pain, fever, nausea, vomiting, weakness or LOC. The patient and/or family expressed understanding of and agreement with this plan. All questions were answered. Home care instructions were provided. Departure Diagnosis: Primary Impression: Encounter for medication refill Condition: Stable Patient Instructions: Taking Medicine Safely Referrals: MARIA DEL CARMEN ISLAS (PCP) Additional Instructions: At this time, I am unable to change change her prescriptions. Patient will need to call her GI specialist tomorrow morning for a change in prescription. Patient will also need to follow-up with her primary care physician for further management of her pain. I will only prescribe the patient a short course of pain medication. Call your primary care doctor TOMORROW for an appointment during the next 1-2 days.See the doctor sooner or return here if your condition worsens before your appointment time. DAMIAN RAMIREZ PA-C Jul 27, 2016 01:14
[2016-07-27 01:59] VITALS: BP 156/78; PULSE 81; RESP 18; TEMP 98
== END 2016-07-27 02:04 | disposition home or self-care (01) ==
LOC: FTE 22:01
DX: Z76.0 Encounter for issue of repeat prescription (principal); Z79.82 Long term (current) use of aspirin; Z85.048 Personal history of other malignant neoplasm of rectum, rectosigmoid junction, and anus
CPT/HCPCS: Z7502; Z7610; 99283